=== PATIENT | male | born 1985 | race American Indian/Alaskan Native ===

== ENCOUNTER 2017-07-24 11:43 | Emergency (ER) | payer OTHER ==
[2017-07-24 12:10] VITALS: BP 133/82
[2017-07-24] MEDS ORDERED: ULTRAM PO ONE (14:10)
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
--- NOTE | 2017-07-24 15:59 | XRay Report ---
FINAL REPORT EXAM: XR SPINE THORACIC 3V HISTORY: upper back and mid back pain TECHNIQUE: AP, lateral and swimmer's views of the thoracic spine. PRIORS: None. FINDINGS: The vertebral body heights and disc spaces are well maintained. The alignment is normal. Pedicles are intact bilaterally at all levels. The paraspinal soft tissues are unremarkable. IMPRESSION: Normal thoracic spine.
== END 2017-07-24 16:14 | disposition home or self-care (01) ==
LOC: ED 11:43
DX: M54.41 Lumbago with sciatica, right side (principal)
CPT/HCPCS: 72072; 99284

== ENCOUNTER 2020-05-15 06:25 | Day surgery (SDC) | payer OTHER ==
[~2020-05-15 06:25] MED LIST: LACTATED RINGERS 1,000 ML IV SCH; MIDAZOLAM 2 MG/2 ML INJ IV NR
[2020-05-15 07:18] VITALS: BP 126/86
[2020-05-15] MEDS ORDERED: BUPIVACAINE/PF (0.5%) 5 MG/1 ML 30 ML VIAL INFILTRATI ONE ×2 (07:25→08:04)
[2020-05-15] MEDS ORDERED: LIDOCAINE (1%) 10 MG/1 ML VIAL 20 ML MDV ONE (07:25)
[2020-05-15] MEDS ORDERED: LIDOCAINE (1%) 10 MG/1 ML VIAL 20 ML MDV INFILTRATI ONE (08:04)
--- NOTE | 2020-05-15 10:02 | Procedure Note ---
Date of procedure: 05/15/20 Pre-op diagnosis: soft tissue mass forehead Post-op diagnosis: same Procedure: excision soft tissue mass of forehead Findings: Patient positioned on stretcher in supine position. Left forehead in the area of the soft tissue mass prepped and draped in the usual sterile fashion. Time out performed. Local anesthetic was infiltrated to skin at the intended incision site. A 2 cm transverse incision was made using a 15 blade. Di ssection was carried down through the skin and subcutaneous tissue using hemostat. Hemostasis was achieved along the way with electrocautery. The mass was encountered and dissected free from its capsule. It was then circumferentially dissected from the surrounding tissue using hemostat, iris scissors, forceps, electrocautery. The mass was freed from the scalp using iris scissors and once completely dissected it was removed from the wound and measured at 2.5 cm. It was passed off the table as a specimen. The wound was then checked for hemostasis. The wound was irrigated and hemostasis carefully achieved using a combination of electrocautery and pressure. The incision was then closed. The deep dermal layer was closed with 4-0 Vicryl interrupted suture. The skin was approximated using interrupted 4-0 Monocryl subcuticular stitches and skin glue. At the end of the case all sponge, instrument, sharp counts were correct x2. The patient tolerated the procedure well and was discharged home in stable condition. Anesthesia: local Surgeon: OZZY URBANO Estimated blood loss: minimal Pathology: list (soft tissue mass forehead) Specimen disposition: to lab Condition: stable Disposition: other (home)
== END 2020-05-15 08:23 | disposition home or self-care (01) ==
LOC: OR 06:25
PROVIDERS: ATTEND Surgery
DX: R22.0 Localized swelling, mass and lump, head (principal); D17.0 Benign lipomatous neoplasm of skin and subcutaneous tissue of head, face and neck; Z98.890 Other specified postprocedural states; Z79.899 Other long term (current) drug therapy
CPT/HCPCS: 26115; 88307; U0003